=== PATIENT | female | born 1950 | race Caucasian/White ===

== ENCOUNTER 2024-03-15 01:13 | Emergency (ER) | payer BC, SELFPAY ==
[2024-03-15 01:13] VITALS: BP 152/81; PULSE 82; RESP 16; TEMP 37.2; O2SAT 94
== END 2024-03-15 01:20 | disposition left against medical advice (07) ==
LOC: ANHED 03-16 04:08
PROVIDERS: PCP Internal Medicine Geriatric Medicine
DX: R10.10 Upper abdominal pain, unspecified (principal)
CPT/HCPCS: 99199